=== PATIENT | female | born 1995 | race African-American/Black ===

== ENCOUNTER 2020-04-14 06:00 | Emergency (ER) | payer OTHER, SELFPAY ==
--- NOTE | ~2020-04-14 | US_ITS ---
EXAMINATION: US OB <=14 wk fetus w TV DATE: 04/14/2020 08:06 INDICATION: Lower abdominal pain during first trimester TECHNIQUE: Real-time pelvic ultrasound utilizing both a transvaginal and transabdominal probe was pe rformed. The interpreting radiologist was not present for the study. COMPARISON: None. FINDINGS: The uterus measures 10.1 x 6.6 x 5.5 cm. The posterior margin of the endometrial complex is poorly de lineated. No intrauterine fluid collection/gestational sac identified. The right ovary measures 2.9 x 2.0 x 2.1 cm. The left ovary measures 3.2 x 2.8 x 1.6 cm. 1.7 cm thick -walled centrally anechoic likely corpus luteum cyst in the left ovary. Vascular flow identified at b oth ovaries on color Doppler. There is a small amount of anechoic free fluid in the pelvis. IMPRESSION: 1. No evident intrauterine gestational sac. Differential would include early, failed or ectopic pregn joaquim. Correlate with serial beta-hCG levels and consider repeat ultrasound as clinically indicated. 2. Small amount of anechoic free fluid in the cul-de-sac. Reviewed, dictated and finalized at location A. IMPRESSION: 1. No evident intrauterine gestational sac. Differential would include early, f chantale or ectopic . Correlate with serial beta-hCG levels and consider repeat ultrasound as clinically indicated. 2. Small amount of anechoic free fluid in the cul-de-sac.
[2020-04-14 06:08] VITALS: BP 129/89; PULSE 77; RESP 18; TEMP 37.1; O2SAT 100
--- NOTE | 2020-04-14 06:27 | ED.FEMALEGU ---
HPI - Female Genitourinary General Chief complaint: TIER LIFT TRUCK OPERATOR <Samson Blackwell MD - Last Filed: 04/14/20 06:30> Stated complaint: pregnacy complications <Samson Blackwell MD - Last Filed: 04/14/20 06:30> Time Seen by Provider: 04/14/20 06:11 <Samson Blackwell MD - Last Filed: 04/14/20 06:30> History of Present Illness HPI Narrative: Patient is a 24-year-old female who presents ER with 2 issues. First she is a who has had a stillbirth, miscarriage, 2 abortions, and 1 live child. She reports she missed her period within the last week. LMP early March. Over the last days she start developing burning urination and frequent urination. No blood in her urine. No vaginal bleeding or discharge. Feels like she has a UTI as she is having some suprapubic discomfort. Has not had an ultrasound or anything to confirm her within the health system. Patient also reports right-sided paraspinal muscular back pain ongoing for the last 3 to 4 days. No known trauma. Does not take any pain medication. Worse with movement. No numbness or tingling radiating down her leg. <Samson Blackwell MD - Last Filed: 04/14/20 06:30> Related Data Home medications: Home Medications Medication Instructions Recorded Confirmed No Home Medications 04/14/20 04/14/20 <Samson Blackwell MD - Last Filed: 04/14/20 06:30> Allergies/Adverse reactions: Allergies Allergy/AdvReac Type Severity Reaction Status Date / Time No Known Allergies Allergy Verified 04/14/20 06:27 <Samson Blackwell MD - Last Filed: 04/14/20 06:30> Review of Systems Review of Systems: All systems reviewed & are unremarkable except as noted in HPI and below <Samson Blackwell MD - Last Filed: 04/14/20 06:30> Gastrointestinal: Gastrointestinal: Reports abdominal pain, Denies diarrhea, Denies nausea and Denies vomiting <Samson Blackwell MD - Last Filed: 04/14/20 06:30> Genitourinary: Genitourinary: Denies abnormal vaginal bleeding, Denies hematuria, Reports nocturia, Reports dysuria, Denies flank pain, Denies urinary incontinence and Denies vaginal discharge <Samson Blackwell MD - Last Filed: 04/14/20 06:30> PMFSH Past Medical History Medical History: Medical History (Updated 04/14/20 @ 09:06 by Shalonda Hassan MD) History of stillbirth No pertinent past medical history <Samson Blackwell MD - Last Filed: 04/14/20 06:30> Surgical History Surgical History: Surgical History (Updated 04/14/20 @ 06:29 by Samson Blackwell MD) History of <Samson Blackwell MD - Last Filed: 04/14/20 06:30> Social History Social History: Social History (Updated 04/14/20 @ 06:29 by Samson Blackwell MD) Smoking status: Never smoker <Samson Blackwell MD - Last Filed: 04/14/20 06:30> Exam Narrative: Exam Narrative: GENERAL: Well-appearing, well-nourished, and in no acute distress. HEAD: Normocephalic, atraumatic. ENT: Mucous membranes moist. CHEST: Clear to auscultation. No respiratory distress. HEART: Regular rate and rhythm. Normal peripheral pulses. ABDOMEN: Soft, mild suprapubic discomfort without guarding, nondistended. No flank pain EXTREMITIES: Normal range of motion. No edema. Back: No midline tenderness of the thoracic or lumbar spine. Reproducible right paraspinal muscular pain mid scapular line near L4-L5. No visible evidence of trauma. SKIN: Warm, dry, no rash. NEURO: Alert and oriented x3. <Samson Blackwell MD - Last Filed: 04/14/20 06:30> Course Reevaluation(s) Reevaluation #1: Assumed care from Dr. Blackwell at 7 AM. Hazj-va-jhee with the patient at 7:15 AM. Her last period was early March. Her first was stillborn twins. Her second was a premature baby that still alive. Third was a miscarriage. Fourth and fifth pregnancies were abortions. 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 She has
[2020-04-14 06:37] LABS: Basophils Absolute Auto 0.1 K/mm3 (0.0-0.1); Basophils Percent Auto 0.7 % (0.2-1.2); Eosinophils Absolute Auto 0.1 K/mm3 (0-0.3); Eosinophils Percent Auto 1.3 % (0-4.4); Hematocrit 38.9 % (37.0-47.0); Hemoglobin 12.8 g/dL (12.0-15.0); Immature Granulocyte Absolute 0.02 K/mm3 (0.00-0.031); Immature Granulocyte Percent A 0.3 % (0-0.5); Lymphocytes Absolute Auto 2.47 K/mm3 (0.9-3.2); Lymphocytes Percent Auto 35.3 % (18.3-44.2); Mean Corpuscular HGB Conc 32.9 g/dl (32-36); Mean Corpuscular Hemoglobin 27.8 pg (26-34); Mean Corpuscular Volume 84.4 fl (80-100); Mean Platelet Volume 10.9 fl (7.4-10.4); Monocytes Absolute Auto 0.6 K/mm3 (0.1-0.6); Monocytes Percent Auto 8.9 % (2.6-8.5); Neutrophils Absolute Auto 3.8 K/mm3 (1.3-6.7); Neutrophils Percent Auto 53.5 % (45.5-73.1); Platelet Count Result 287 k/mm3 (150-375); Red Blood Count 4.61 M/mm3 (4.2-5.4); Red Cell Distribution Width 17.1 % (11.5-14.5)
[2020-04-14 06:44] LABS: Add Urine Microscopic? NO; Appearance Urine Clear (Clear); Bilirubin Urine Negative (Negative); Blood Urine Negative (Negative); Color Urine Yellow (Yellow); Glucose Urine UA Negative (Negative); Ketones Urine Negative (Negative); Leukocyte Esterase Ur Negative LEU/UL (Negative); Nitrate Urine Negative (Negative); Protein Urine Negative (Negative); Specific Grav Ur 1.027 (1.001-1.035); Urobilinogen Urine Negative mg/dL (<2.0)
[2020-04-14 06:50] LABS: Blood Urea Nitrogen 11 mg/dL (7-17); Calcium 8.7 mg/dL (8.4-10.2); Carbon Dioxide 25 mmol/L (22-30); Chloride 102 mmol/L (98-107); Estimated Glomerular Filt Rate > 60; Glucose 93 mg/dL (65-105); Potassium 3.7 mmol/L (3.4-5.0); Sodium 134 mmol/L (137-145)
[2020-04-14 07:07] LABS: Beta HCG Quantitative 315.75 mIU/ML
[2020-04-14 07:08] VITALS: BP 95/57; PULSE 78; RESP 18; O2SAT 100
[2020-04-14 09:21] VITALS: BP 108/69; PULSE 87; RESP 18; TEMP 37.3; O2SAT 100
== END 2020-04-14 09:27 | disposition home or self-care (01) ==
PROVIDERS: Emergency Medicine; Emergency Provider Emergency Medicine
DX: O26.891 Other specified pregnancy related conditions, first trimester (principal); R10.9 Unspecified abdominal pain; O26.21 Pregnancy care for patient with recurrent pregnancy loss, first trimester; Z3A.01 Less than 8 weeks gestation of pregnancy
CPT/HCPCS: 36415; 76801; 76817; 80048; 81003; 81025; 84702; 85025; 99284

== ENCOUNTER 2020-12-04 03:18 | Observation (INO) | payer OTHER, SELFPAY ==
--- NOTE | 2020-12-27 19:54 | PM.OBTRLD ---
OB - Triage/Final Diagnosis Visit Information Comments/Additional reasons for admission: I have assessed the risk for this patient, Pema Wallace, and determined that she would benefit from observation care. Final Diagnosis (1) False labor: Code(s): O47.9 - False labor, unspecified Status: Acute
== END 2020-12-04 05:25 | disposition home or self-care (01) ==
PROVIDERS: Admitting Provider Obstetrics & Gynecology; Visit Provider Obstetrics & Gynecology
DX: O47.1 False labor at or after 37 completed weeks of gestation (principal); Z3A.38 38 weeks gestation of pregnancy
CPT/HCPCS: 84112; G0378; G0379

== ENCOUNTER 2020-12-11 06:07 | Inpatient (IN) | payer OTHER, SELFPAY ==
[2020-12-11] VITALS (45 sets, daily range): BP systolic 102–128; BP diastolic 45–84; PULSE 65–88; RESP 16–20; TEMP 36.3–36.8; O2SAT 98–100; BMI 33.8
--- NOTE | 2020-12-11 06:07 | LDADM ---
This patient, Pema Wallace, was admitted to Labor/Delivery/Recovery 120 on 12/11/20 at 06:07. Plans for labor, pain management and were discussed with patient. Patient/family oriented to hospital policies and general routines including ID bracelet, bed and alarms, visiting hours, pain management, procedures, bathroom and other care routines, personal items, smoking policy, room service/diet and guest tray routines, security routines, and visiting hours. Patient/Family are encouraged to report perceived risks to care and to ask questions if they do not understand what they are told or what they should do. See OBIX for further documentation.
[2020-12-11 06:53] LABS: Basophils Percent Auto 0.4 % (0.2-1.2); Eosinophils Percent Auto 0.4 % (0-4.4); Hematocrit 30.1 % (37.0-47.0); Hemoglobin 9.4 g/dL (12.0-15.0); Immature Granulocyte Absolute 0.04 K/mm3 (0.00-0.031); Immature Granulocyte Percent A 0.5 % (0-0.5); Lymphocytes Absolute Auto 1.84 K/mm3 (0.9-3.2); Lymphocytes Percent Auto 23.3 % (18.3-44.2); Mean Corpuscular HGB Conc 31.2 g/dl (32-36); Mean Corpuscular Hemoglobin 24.2 pg (26-34); Mean Corpuscular Volume 77.4 fl (80-100); Mean Platelet Volume 11.3 fl (7.4-10.4); Monocytes Absolute Auto 0.7 K/mm3 (0.1-0.6); Monocytes Percent Auto 8.9 % (2.6-8.5); Neutrophils Absolute Auto 5.3 K/mm3 (1.3-6.7); Neutrophils Percent Auto 66.5 % (45.5-73.1); Platelet Count Result 251 k/mm3 (150-375); Red Blood Count 3.89 M/mm3 (4.2-5.4); Red Cell Distribution Width 18.8 % (11.5-14.5); White Blood Count 7.9 K/mm3 (4.5-10.0)
--- NOTE | 2020-12-11 07:06 | WPDANESEPPF ---
Anes - Initial Pre Proc Eval Procedure: Operation Date: 12/11/20 07:30 Proposed Procedures p Repeat Section - Enio Andres MD Date/Time: 12/11/20 07:06 Surgeon: Enio Andres MD Pre Op Diagnosis: C Section Patient Data Age: 25 Gender: F Height: 1.57 m Weight: 84 kg Last Vital Signs Pulse 82 12/11/20 06:57 BP 113/79 12/11/20 06:57 Allergies Allergy/AdvReac Type Severity Reaction Status Date / Time No Known Allergies Allergy Verified 04/14/20 06:27 Home Medications Medication Instructions Recorded Confirmed Type No Home Medications 04/14/20 04/14/20 History Laboratory Tests 12/11/20 12/11/20 06:45 06:45 WBC 7.9 K/mm3 K/mm3 (4.5-10.0) RBC 3.89 M/mm3 L M/mm3 (4.2-5.4) Hgb 9.4 g/dL L D g/dL (12.0-15.0) Hct 30.1 % L % (37.0-47.0) MCV 77.4 fl L fl (80-100) MCH 24.2 pg L pg (26-34) MCHC 31.2 g/dl L g/dl (32-36) RDW 18.8 % H % (11.5-14.5) Plt Count 251 k/mm3 k/mm3 (150-375) MPV 11.3 fl H fl (7.4-10.4) Immature Gran % (Auto) 0.5 % % (0-0.5) Neut % (Auto) 66.5 % % (45.5-73.1) Lymph % (Auto) 23.3 % % (18.3-44.2) [place] % (Auto) 8.9 % H % (2.6-8.5) Eos % (Auto) 0.4 % % (0-4.4) Baso % (Auto) 0.4 % % (0.2-1.2) Lymph # (Auto) 1.84 K/mm3 K/mm3 (0.9-3.2) [place] # (Auto) 0.7 K/mm3 H K/mm3 (0.1-0.6) Eos # (Auto) 0.0 K/mm3 K/mm3 (0-0.3) Baso # (Auto) 0.0 K/mm3 K/mm3 (0.0-0.1) Abs Immat Gran (auto) 0.04 K/mm3 H K/mm3 (0.00-0.031) Absolute Neuts (auto) 5.3 K/mm3 K/mm3 (1.3-6.7) Absolute Nucleated RBC 0.0 K/mm3 K/mm3 (0.0-0.012) Nucleated RBC % 0.0 % % (0.0-0.2) RPR Pending Patient hx anesthesia problems: none Family hx anesthesia problems: none [facility] Past Medical History Medical History (Updated 04/15/20 @ 00:00 by Kalpana Oliva) History of stillbirth No pertinent past medical history Surgical History Surgical History (Updated 04/14/20 @ 06:29 by Samson Blackwell MD) History of Family History Family History (Updated 12/11/20 @ 07:06 by Migdalia Martin RN) Other Unknown family medical history Social History Social History (Updated 04/14/20 @ 06:29 by Samson Blackwell MD) Smoking status: Never smoker Anes - Eval Final PreProcedure Day of Procedure 12/11/20 07:06 Patient weight: obese Heart: regular rate and rhythm Lungs: clear to auscultation and normal air movement Airway: Mallampati scale class II Neurological: alert and oriented Last oral intake: >/= 8 hours ASA classification: II Emergent: no Anesthetic plan: proceed Anesthesia type and monitoring: regional spinal Informed Consent: The patient's anesthetic plan and its attendant risks and benefits were discussed with the patient/family/POA. Questions were solicited and answers provided to the satisfaction of the patient/family/POA.
--- NOTE | 2020-12-11 07:17 | WPDHPUPDATE1 ---
History and Physical Update Update Date/Time: 12/11/20 07:17 History and Physical has been reviewed, including an updated exam of the patient. There are NO changes in the patient's condition. Risks, benefits, and alternatives have been discussed and questions answered. Patient agrees to proceed with procedure.
--- NOTE | 2020-12-11 07:17 | PM.IMHP ---
H&P: HPI History of Present Illness Date/Time: 12/11/20 07:17 Chief Complaint: Term Narrative: Pema Wallace is a 25 year old female multiparous at 39 weeks with a previous delivery. We have agreed to perform repeat delivery. She understands surgery has risks. She understands that injuries may occur that result in hospitalization, more surgery, and severe illness. She understands the risk of hemorrhage and infection. She denies any contractions, loss of fluid, vaginal bleeding. She reports good movement. She denies any nausea, vomiting, fever, chills. She denies any chest pain or shortness of breath. Review of Systems Constitutional: Constitutional: Reports no additional constitutional complaints, Denies fatigue, Denies headache(s), Denies lethargy and Denies weakness Eyes: Eyes: Reports no additional eye complaints, Denies blurry vision and Denies photophobia ENT: Reports as per HPI, Denies headache(s) and Denies neck pain Cardiovascular: Cardiovascular: Denies chest pain, Denies diaphoresis, Denies leg edema, Denies palpitations and Denies dyspnea Respiratory: Respiratory: Denies hemoptysis, Denies dyspnea and Denies wheezing Gastrointestinal: Gastrointestinal: Denies abdominal pain, Denies melena, Denies bloating, Denies hematochezia, Denies nausea and Denies vomiting Genitourinary: Genitourinary: Reports no additional female genitourinary complaints Musculoskeletal: Musculoskeletal: Denies joint swelling, Denies neck pain, Denies numbness and Denies stiffness Neurologic: Denies Abnormal speech present, Denies confusion, Denies headache(s), Denies numbness and Denies weakness Psychiatric: Psychiatric: Denies anxiety, Denies confusion, Denies depression, Denies homicidal ideation and Denies suicidal ideation Endocrine: Endocrine: Denies fatigue and Denies palpitations Allergic/Immunologic: Allergic/Immunologic: Denies wheezing PMFSH Past Medical History Medical History (Updated 04/15/20 @ 00:00 by Background Daemon) History of stillbirth No pertinent past medical history Surgical History Surgical History (Updated 12/11/20 @ 07:18 by Enio Andres MD) History of Family History Family History (Updated 12/11/20 @ 07:06 by Migdalia Martin RN) Other Unknown family medical history Social History Social History (Updated 04/14/20 @ 06:29 by Samson Blackwell MD) Smoking status: Never smoker Substance use: never Gender identity (if verbalized by the patient): Female Sexual Orientation (if Verbalized by the Patient): Straight or Heterosexual Spiritual care concerns: No Meds Home Medications and Allergies Home Medications Medication Instructions Recorded Confirmed Type No Home Medications 04/14/20 04/14/20 History Allergies Allergy/AdvReac Type Severity Reaction Status Date / Time No Known Allergies Allergy Verified 04/14/20 06:27 Vital Signs Vital Signs - 24 hr 12/11/20 06:57 12/11/20 07:16 Pulse Rate 82 88 Blood Pressure 113/79 119/84 Exam Const: General: healthy appearing, comfortable and no acute distress; No confusion Orientation/consciousness: No confusion Eyes: Direct Ophthalmoscopy: No photophobia Resp: Auscultation: clear to auscultation bilaterally, no rales, no rhonchi and no wheezes Cardio: Rate: regular rate Heart sounds: no click, no murmurs and no rubs GI: Inspection: non-distended GI Palp: No abdominal tenderness Auscultation: normal bowel sounds Neuro: General: No confusion Speech: No Abnormal speech present Extrem: General: normal to inspection, no pedal edema and no calf tenderness H&P: Results Labs Labs: Short CBC 12/11/20 Range/Units 06:45 WBC 7.9 (4.5-10.0) K/mm3 Hgb 9.4 L D (12.0-15.0) g/dL Hct 30.1 L (37.0-47.0) % Plt Count 251 (150-375) k/mm3 Assessment and Plan Assessment and plan (1) Previous delivery, antepartum condition or compli
[2020-12-11] MEDS: LACTATED RINGERS 1,000 ML 999 ML IV CONT (07:20)
[2020-12-11] MEDS: ceFAZolin 2 GM/D5W 50 ML 2 GM/50 ML BAG IVPB (07:30)
[2020-12-11] MEDS: LACTATED RINGERS 1,000 ML 125 ML IV CONT (07:30)
[2020-12-11] MEDS: KETOROLAC 30 MG/ML VIAL (*BKC) IV PUSH (08:09)
--- NOTE | 2020-12-11 08:12 | PM.PROC ---
Procedure Note - Detailed Date of procedure: 12/11/20 Pre-op diagnosis: C Section previous delivery Post-op diagnosis: same Procedure performed: low-transverse delivery Description of procedure: The patient was taken the operating room. She was prepped and draped in the dorsal supine position with leftward tilt after induction of spinal anesthetic. When anesthesia was found to be adequate a low-transverse skin incision was made and carried down to the level the fascia with the knife. The fascial incision was made at the midline with a scalpel. The fascial incision was extended laterally with Becerra scissors. The fascia was tented upward superior and inferior with Alexa clamps. The rectus muscles were dissected off bluntly. The rectus muscles at the midline. The preperitoneal fat was dissected bluntly at the superior aspect of the separate the rectus muscles. The peritoneal cavity was entered bluntly in the same area. The peritoneal incision was extended superior and inferior with good visualization of bladder. Bladder blade was inserted. A low-transverse incision was made on the uterus with the scalpel. It was carried down the level of the amniotic cavity with a knife. The amniotic cavity bluntly. The uterine incision was made laterally with blunt traction. The infant was delivered. The cord was clamped and cut. The infant was handed off to waiting pediatric staff. Cord bloods were obtained. The placenta was removed manually. The uterus was exteriorized. Uterus cleared of all clots and debris. Uterus closed in 0 Vicryl in a running locked fashion. An imbricating layer of 0 Vicryl was also placed on the to bolster the closure. The uterus was returned to the abdomen. The gutters were cleared of all clots and debris. The fascia was closed 0 Vicryl in a running fashion. Subcutaneous tissue was irrigated and bleeding areas were cauterized. The skin was closed with subcuticular absorbable roxana. The incision was covered with derma man. The patient tolerated the procedure well. She was taken recovery room stable condition. Sponge, lap, needle counts were correct x2. Anesthesia: spinal Surgeon: Enio Andres MD Drains: No Packing: No Pathology: none sent Complications: No immediate complications Condition: stable Disposition: floor Findings: Normal maternal anatomy. Average size with normal Apgars.
[2020-12-11] MEDS: OXYTOCIN 30 UNITS/NS 500 ML 30 UNITS/500 ML BAG 125 UNITS IV CONT (08:51)
[2020-12-11 09:37] LABS: Amphetamine Screen Urine Negative (Negative); Barbiturate Screen Urine Negative (Negative); Benzodiazepines Screen Urine Negative (Negative); Cannabinoid Screen Urine Negative (Negative); Cocaine Screen Urine Negative (Negative); Methadone Screen Urine Negative (Negative); Opiate Screen Urine Negative (Negative); Phencyclidine Screen Urine Negative (Negative)
[2020-12-11] MEDS: MORPHINE SULFATE (*CRX) 2 MG/ML INJ IV PUSH (10:05)
--- NOTE | 2020-12-11 10:42 | OBPPTRN ---
Patient transferred to post room # 1042 via stretcher. Support person present. Oriented to unit, room, information board, rooming in, admission packet and security measures. Patient verbalizes understanding.
[2020-12-11] MEDS: DEXTROSE 5%/0.45% SOD CHL 1,000 ML 125 ML IV CONT ×2 (13:41→21:41)
--- NOTE | 2020-12-11 16:10 | PC.NURSE ---
Breast pump provided due to mother's wishes to pump and bottle feed. Instructions given on breast pump care and usage, pumping schedule, nipple care, and collection and storage of breast milk. Encouraged [id number], breast massage and manual expression to stimulate supply. Assessed patient for correct flange size, placement and draw. Patient verbalizes and demonstrates understanding of instructions. Stressed to mother she may see small drops at first and regular consistent pumping will assist with milk supply by day 3-4.
[2020-12-11] MEDS: DOCUSATE SODIUM 100 MG CAPSULE PO (20:09)
[2020-12-11] MEDS: SIMETHICONE 80 MG TAB.CHEW PO (20:09)
[2020-12-11] MEDS: IBUPROFEN 600 MG TABLET PO (20:09)
[2020-12-11] MEDS: POLYSACCHARIDE IRON COMPLEX 150 MG CAPSULE PO (20:09)
[2020-12-11] MEDS: HYDROcodone/acetaminophen (*CRX) 5-325 MG TABLET 1 TAB PO (20:10)
[2020-12-12] VITALS: BP 123/72; PULSE 81; RESP 18; TEMP 37.1; O2SAT 98
[2020-12-12] MEDS: HYDROcodone/acetaminophen (*CRX) 10-325 MG TABLET 1 TAB PO ×4 (04:52→18:51)
[2020-12-12] MEDS: IBUPROFEN 600 MG TABLET PO ×3 (04:52→18:51)
[2020-12-12 05:01] VITALS: BP 122/60; PULSE 87; RESP 16; TEMP 36.3; O2SAT 99
[2020-12-12 05:21] LABS: Basophils Percent Auto 0.4 % (0.2-1.2); Eosinophils Absolute Auto 0.1 K/mm3 (0-0.3); Eosinophils Percent Auto 0.7 % (0-4.4); Hematocrit 25.1 % (37.0-47.0); Hemoglobin 7.7 g/dL (12.0-15.0); Immature Granulocyte Absolute 0.03 K/mm3 (0.00-0.031); Immature Granulocyte Percent A 0.4 % (0-0.5); Lymphocytes Absolute Auto 1.58 K/mm3 (0.9-3.2); Lymphocytes Percent Auto 23.2 % (18.3-44.2); Mean Corpuscular HGB Conc 30.7 g/dl (32-36); Mean Corpuscular Hemoglobin 24.1 pg (26-34); Mean Corpuscular Volume 78.7 fl (80-100); Mean Platelet Volume 11.3 fl (7.4-10.4); Monocytes Absolute Auto 0.6 K/mm3 (0.1-0.6); Monocytes Percent Auto 8.7 % (2.6-8.5); Neutrophils Absolute Auto 4.5 K/mm3 (1.3-6.7); Neutrophils Percent Auto 66.6 % (45.5-73.1); Platelet Count Result 213 k/mm3 (150-375); Red Blood Count 3.19 M/mm3 (4.2-5.4); Red Cell Distribution Width 18.8 % (11.5-14.5); White Blood Count 6.8 K/mm3 (4.5-10.0)
--- NOTE | 2020-12-12 06:30 | PC.NURSE ---
Pt wearing abdominal binder on lower part of breasts and extending to abdomen. Encouraged pt to bring the binder down to the abdomen so that it does not impede milk supply when milk starts coming in since she is pumping and bottlefeeding. Pt states understanding.
--- NOTE | 2020-12-12 09:00 | WPDANLDPN2 ---
Anes-Prog Note L&D Date/Time: 12/12/20 09:00 Comfortable throughout: section Neuraxial method: spinal Epidural/Spinal procedure site: clean & non-tender Neuro status: Neuro function grossly intact. Cardiovascular status: normal Respiratory status: normal Airway patency: baseline Mental status: baseline Post-Op hydration status: normal Vital Signs: Last Vital Signs Temp 36.3 C L 12/12/20 05:01 Pulse 87 12/12/20 05:01 Resp 16 12/12/20 05:01 BP 122/60 12/12/20 05:01 Pulse Ox 99 12/12/20 05:01 Pain score (VAS): 10/18 I/O: Intake & Output 12/11/20 12/12/20 12/12/20 23:59 07:59 15:59 Intake Total 1740 800 Output Total 200 2600 Balance 1540 -1800 Post-procedural complaints: none Patient feedback: Patient satisfied with anesthetic care.
--- NOTE | 2020-12-12 09:04 | WPDANLDNPN2 ---
Anes-Prog Note L&D-Neuraxial Date/Time: 12/12/20 09:04 Neuraxial medications: intrathecal PF morphine Opiod-related complaints: none Patient feedback: Patient satisfied with post-operative pain management.
[2020-12-12] MEDS: DOCUSATE SODIUM 100 MG CAPSULE PO ×2 (09:51→18:50)
[2020-12-12] MEDS: MULTIVIT/MIN/PREN/FOL AC/IRON TABLET 1 TAB PO (09:52)
[2020-12-12] MEDS: POLYSACCHARIDE IRON COMPLEX 150 MG CAPSULE PO ×2 (09:52→18:50)
--- NOTE | 2020-12-12 09:52 | P.PNOB_ITS ---
OB - PN: Subj Subjective Date/time seen: 12/12/20 09:52 Patient comments: no complaints, pain well controlled, tolerating diet and flatus present [place] baby status: doing well OB - PN: Obj Data Labs CBC & Chem 7: 12/12/20 04:40 Labs: Laboratory Results - last 24 hr 12/12/20 04:40 WBC 6.8 RBC 3.19 L Hgb 7.7 L Hct 25.1 L MCV 78.7 L MCH 24.1 L MCHC 30.7 L RDW 18.8 H Plt Count 213 MPV 11.3 H Immature Gran % (Auto) 0.4 Neut % (Auto) 66.6 Lymph % (Auto) 23.2 [place] % (Auto) 8.7 H Eos % (Auto) 0.7 Baso % (Auto) 0.4 Lymph # (Auto) 1.58 [place] # (Auto) 0.6 Eos # (Auto) 0.1 Baso # (Auto) 0.0 Abs Immat Gran (auto) 0.03 Absolute Neuts (auto) 4.5 Absolute Nucleated RBC 0.0 Nucleated RBC % 0.0 OB - PN A/P Plan day: 1 Plan: routine care Time Spent With Patient Time: Total time spent is greater than 50% in coordination of care (as documented) at patient's floor/unit and/or counseling patient: Time with patient: less than 15 minutes Review of Systems Review of Systems: All systems reviewed & are unremarkable except as noted in HPI and below Exam Narrative: Exam Narrative: Fundus firm. Vaginal flow controlled. Incision dry and intact. Negative homans. No redness, warmth, or pain of lower ext. Const: General: comfortable Chest: Breast/axilla inspection: normal inspection of the breasts Resp: Effort & Inspection: normal respiratory effort Auscultation: clear to auscultation bilaterally Cardio: Rate: regular rate GI: GI Palp: Yes Soft to palpation Psych: Appearance: grossly normal Affect: normal affect Attitude: cooperative Thought content: Yes Normal thought content present Judgement: Good judgement present (Psych)
[2020-12-12 10:00] VITALS: BP 120/55; PULSE 80; RESP 18; TEMP 36.8; O2SAT 100
[2020-12-12 20:00] VITALS: BP 124/71; PULSE 75; RESP 18; TEMP 36.3; O2SAT 100
[2020-12-13] MEDS: HYDROcodone/acetaminophen (*CRX) 10-325 MG TABLET 1 TAB PO (01:49)
[2020-12-13] MEDS: IBUPROFEN 600 MG TABLET PO ×3 (01:50→13:26)
--- NOTE | 2020-12-13 01:50 | P.PNOB_ITS ---
OB - PN: Subj Subjective Date/time seen: 12/13/20 01:50 Patient comments: no complaints, pain well controlled, tolerating diet and flatus present [place] baby status: doing well OB - PN: Obj Data Labs CBC & Chem 7: 12/12/20 04:40 Labs: Laboratory Results - last 24 hr 12/12/20 04:40 WBC 6.8 RBC 3.19 L Hgb 7.7 L Hct 25.1 L MCV 78.7 L MCH 24.1 L MCHC 30.7 L RDW 18.8 H Plt Count 213 MPV 11.3 H Immature Gran % (Auto) 0.4 Neut % (Auto) 66.6 Lymph % (Auto) 23.2 [place] % (Auto) 8.7 H Eos % (Auto) 0.7 Baso % (Auto) 0.4 Lymph # (Auto) 1.58 [place] # (Auto) 0.6 Eos # (Auto) 0.1 Baso # (Auto) 0.0 Abs Immat Gran (auto) 0.03 Absolute Neuts (auto) 4.5 Absolute Nucleated RBC 0.0 Nucleated RBC % 0.0 OB - PN A/P Plan day: 2 Plan: routine care Comments: Not interested in discharge today. Time Spent With Patient Time: Total time spent is greater than 50% in coordination of care (as documented) at patient's floor/unit and/or counseling patient: Time with patient: less than 15 minutes Review of Systems Review of Systems: All systems reviewed & are unremarkable except as noted in HPI and below Exam Narrative: Exam Narrative: Fundus firm. Vaginal flow controlled. Incision dry and intact. Negative homans. No redness, warmth, or pain of lower ext. Const: General: comfortable Chest: Breast/axilla inspection: normal inspection of the breasts Resp: Effort & Inspection: normal respiratory effort Auscultation: clear to auscultation bilaterally Cardio: Rate: regular rate GI: GI Palp: Yes Soft to palpation Psych: Appearance: grossly normal Affect: normal affect Attitude: cooperative Thought content: Yes Normal thought content present Judgement: Good judgement present (Psych)
[2020-12-13] MEDS: SIMETHICONE 80 MG TAB.CHEW PO ×2 (07:49→17:36)
[2020-12-13] MEDS: HYDROcodone/acetaminophen (*CRX) 5-325 MG TABLET 1 TAB PO ×3 (07:49→17:36)
[2020-12-13] MEDS: DOCUSATE SODIUM 100 MG CAPSULE PO ×2 (07:50→17:36)
[2020-12-13] MEDS: POLYSACCHARIDE IRON COMPLEX 150 MG CAPSULE PO ×2 (07:50→17:36)
[2020-12-13 08:00] VITALS: BP 120/85; PULSE 74; RESP 18; TEMP 36.6
[2020-12-13 09:03] LABS: Rapid Plasma Reagin Non-Reactive (NonReactive)
[2020-12-13 18:45] VITALS: BP 113/66; PULSE 82; RESP 18; TEMP 36.7; O2SAT 99
[2020-12-14] MEDS: IBUPROFEN 600 MG TABLET PO ×3 (00:37→12:27)
[2020-12-14] MEDS: HYDROcodone/acetaminophen (*CRX) 5-325 MG TABLET 1 TAB PO ×3 (00:38→12:28)
[2020-12-14] MEDS: POLYSACCHARIDE IRON COMPLEX 150 MG CAPSULE PO (07:37)
[2020-12-14] MEDS: DOCUSATE SODIUM 100 MG CAPSULE PO (07:37)
[2020-12-14 07:40] VITALS: BP 106/66; PULSE 76; RESP 16; TEMP 36.5; O2SAT 97
--- NOTE | 2020-12-14 08:00 | PM.OBPNVD ---
OB - PN: Subj Subjective Date/time seen: 12/14/20 08:00 Patient comments: no complaints, pain well controlled, incisional pain, tolerating diet and flatus present OB - PN: Obj Data Labs CBC & Chem 7: 12/12/20 04:40 Labs: Laboratory Results - last 24 hr 12/11/20 06:45 RPR Non-reactive OB - PN A/P Plan day: 3 Plan: routine care, discharge home and other Comments: Incision check in one week. Given precautions Time Spent With Patient Time: Total time spent is greater than 50% in coordination of care (as documented) at patient's floor/unit and/or counseling patient: Exam Const: General: comfortable, no acute distress and alert Resp: Effort & Inspection: normal respiratory effort Auscultation: no crackles, no rales and no rhonchi Cardio: Rate: regular rate Heart sounds: no click, no murmurs and no rubs GI: Inspection: non-distended GI Palp: No Tenderness to palpation present (GI) Auscultation: normal bowel sounds Other: Incision - CDI Extrem: General: normal to inspection, no pedal edema and no calf tenderness
--- NOTE | 2020-12-14 08:04 | PM.OBDSVD ---
DS: Admitting Diagnosis Admitting Diagnosis Admitting Diagnosis: term DS: Discharge Diagnosis Discharge Diagnosis (1) Previous delivery, antepartum condition or complication: Code(s): O34.219 - Maternal care for unspecified type scar from previous delivery Status: Acute OB - DS: Summary OB Procedures : None OB Procedures Intrapartum: OB Procedures: : None Peripartum Data Procedures: Procedures Operation Date: 12/11/20 07:30 Actual Procedures Side Surgeon p Repeat Section Not Applicable Enio Andres MD complications: none Status at Discharge Functional status at discharge: independent ambulation Time Spent with Patient Time attestation: Total time spent providing and/or coordinating discharge services: DS: Data Data Completed and Pending Labs on day of discharge: Labs from last 24 hours 12/11/20 06:45 RPR Non-reactive Discharge Plan Discharge Discharging Clinician: Enio Andres Patient Disposition: Home, Self-Care Activity: pelvic rest Diet: regular Patient Instructions: Antibiotic Form Stand Alone Forms: General Discharge Information Follow-up/Referrals: Enio Andres MD [Physician] - Discharge Medications: New hydrocodone-acetaminophen 5-325 mg tablet 1 - 2 tablet PO Q4H PRN (Reason: pain) Qty: 25 RF: 0 Continued PNV [id number] [] 28 mg iron- 800 mcg Tablet 1 tablet PO DAILY RF: 0 Date of admission: 12/11/20 06:07 Primary Care Provider: PHYSICIAN,AERONAUTICAL RESEARCH ENGINEER Admitting Provider: Enio Andres Attending physician on admission: Enio Andres Condition: Stable
--- NOTE | 2020-12-14 08:05 | PC.NURSE ---
Consult with pt., mother requested pump to initiate pumping on Monday. Assisted with pump set up, mother states she has pumped a few times since set up, she believes her milk may be coming in. Discussed regular pumping to assist with milk supply. Mother reports she is unsure if she wishes to continue pumping. Mother does not have a pump for home use. Suggested using the kit as a hand pump, if she wishes to continue pumping she can contact her [facility] office for assist with pump. Reviewed breast pump care and usage, pumping schedule, nipple care, and collection and storage of breast milk. Encouraged [id number], breast massage and manual expression to stimulate supply. Reviewed correct flange size, placement and draw. Patient verbalizes and demonstrates understanding of instructions. Discussed engorgement/relief if mother chooses to discontinue pumping.
[2020-12-16 10:50] VITALS: BP 125/64; PULSE 62; RESP 20; TEMP 36.5; O2SAT 100
== END 2020-12-14 12:44 | disposition home or self-care (01) | DRG 540 ==
LOC: ANHLDR 06:12 → ANHOB2 11:22
PROVIDERS: Admitting Provider Obstetrics & Gynecology; Visit Provider Obstetrics & Gynecology
PROC: 10D00Z1 Extraction of Products of Conception, Low, Open Approach (ICD-10-PCS; CPT 59514; principal; 2020-12-11 07:30)
DX: O34.211 Maternal care for low transverse scar from previous cesarean delivery (principal); Z37.0 Single live birth; Z3A.39 39 weeks gestation of pregnancy; O99.214 Obesity complicating childbirth; E66.9 Obesity, unspecified
CPT/HCPCS: 36415; 80307; 85025; 86592; 86850; 86900; 86901; A9270; J0131; J0690; J1885; J2270; J2274; J2405; J2590; J2704; J7120